=== PATIENT | male | born 1930 | race Caucasian/White ===

== ENCOUNTER 2017-03-18 13:38 | Inpatient (IN) | payer MEDICARE ==
[~2017-03-18] VITALS: Ht 182.9 cm; Wt 77.0 kg
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
[2017-03-18 14:31] VITALS: BP 108/66; BMI 22.5
[2017-03-18 16:35] LABS: BASOPHILS 0.5 % (0-2); HEMATOCRIT 41.3 % (42.0-54.0); HEMOGLOBIN 13.4 g/dL (13.5-17.5); IMMATURE GRANULOCYTES 0.3 % (0-5); LYMPHOCYTES 32.6 % (15-50); MCH 30.8 pg (26.0-34.0); MCHC 32.4 g/dL (31.0-37.0); MCV 94.9 fL (80.0-100.0); MEAN PLATELET VOLUME 9.5 fL (7.4-10.4); MONOCYTES 10.3 % (2-11); NEUTROPHILS 45.3 % (40-80); PLATELET COUNT 211 10x3/uL (130-400); RBC 4.35 10x6/uL (4.20-6.10); RDW 14.2 % (11.5-14.5); WBC 12.7 10x3/uL (4.8-10.8)
[2017-03-18] MEDS ORDERED: CIPRO500 MG PO (16:42)
[2017-03-18] MEDS ORDERED: BAYER CHEWABLE81 MG PO (16:44)
[2017-03-18] MEDS ORDERED: CELEXA20 MG PO (16:45)
[2017-03-18] MEDS ORDERED: FOLIC ACID1 MG PO (16:45)
[2017-03-18] MEDS ORDERED: CIMETIDINE200 MG PO (16:46)
[2017-03-18] MEDS ORDERED: SYNTHROID25 MCG PO (16:47)
[2017-03-18] MEDS ORDERED: COLACE100 MG PO (16:48)
[2017-03-18] MEDS ORDERED: BETAPACE 80 MG80 MG PO (16:48)
[2017-03-18] MEDS ORDERED: DEPAKOTE125 MG PO (16:49)
[2017-03-18 16:51] LABS: HEMOGLOBIN A1C 5.6 % (4.8-6.0)
[2017-03-18] MEDS ORDERED: ZOCOR20 MG PO (16:51)
[2017-03-18] MEDS ORDERED: REMERON15 MG PO (16:51)
[2017-03-18] MEDS ORDERED: ZYRTEC10 MG PO (16:52)
[2017-03-18 17:03] LABS: ALBUMIN 3.1 g/dL (3.4-5.0); ANION GAP 9.9 mmol/L (8-16); BILIRUBIN - TOTAL 0.27 mg/dL (0.2-1.3); CALCIUM 8.9 mg/dL (8.5-10.1); CARBON DIOXIDE 29.8 mmol/L (21.0-32.0); CHOL - HDL RATIO 3.9 ratio (2.3-4.9); CREATININE - SERUM 1.5 mg/dL (0.6-1.3); POTASSIUM - SERUM 4.7 mmol/L (3.5-5.1); PROTEIN - SERUM 8.3 g/dL (6.4-8.2); THYROID STIMULATING HORMONE 3.53 uIU/mL (0.36-3.74)
[2017-03-18 19:55] VITALS: BP 103/62; BP 105/44
[2017-03-18 19:58] VITALS: BP 109/62
--- NOTE | 2017-03-19 04:18 | NUR ---
B) Patient is alert and oriented to self, calm and watching TV, no behaviors noted this shift, I) Administered scheduled medications, monitored for safety and falls, redirected as needed. R) Medication compliant, resting now quietly in bed. P) Continue plan of care.
[2017-03-19 06:13] LABS: RAPID PLASMA REAGIN Non Reactive (Non Reactive)
[2017-03-19 07:23] LABS: FOLATE (FOLIC ACID) - SERUM >20.0 ng/mL (>3.0)
[2017-03-19 09:50] VITALS: BP 120/71
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
--- NOTE | 2017-03-19 12:41 | NUR ---
PATIENT IS IN DINING ROOM AND HE HAS MADE A LEWD REMARK, BUT NO FEMALE IS AROUND HIM, HE SAID HE WANTED TO "F" SOMEONE. WILL MONITOR.
[2017-03-19 13:21] VITALS: BMI 22.3
[2017-03-19 20:37] VITALS: BP 121/69
[2017-03-19 20:55] VITALS: BP 121/69
--- NOTE | 2017-03-20 04:07 | NUR ---
B) Patient is alert and oriented to self, complains of back pain and moans loadly at times, no sexual remarks noted this shift, needy and attention seeking, I) Administered scheduled medications, monitored for safety and falls, assisted with transfers. R) Medication compliant, when in bed patient was able to lift legs and raise his bottom off the bed. P) Continue plan of care.
[2017-03-20 07:00] VITALS: BP 125/57
--- NOTE | 2017-03-20 12:58 | NUR ---
ORIENTED TO SELF ,TOWN, AND HOSPITAL ONLY.NO SEXUAL ADVANCES TOWARD STAFF OBSERVED OR REPORTED TODAY.IS COMPLIANT WITH STAFF AND MEDS.WILL CONTINUE WITH PLAN OF CARE,MONITOR FOR CHANGES AND SAFETY.
[2017-03-20 20:07] LABS: VITAMIN D 25 HYDROXY 22.5 ng/mL (30.0-100.0)
[2017-03-20 20:50] VITALS: BP 144/79
--- NOTE | 2017-03-20 20:54 | NUR ---
RECEIVED IN HALLWAY OUTSIDE OF NURSES STATION. RESTING EYES CLOSED IN RECLINING CHAIR. CALM AND COOPERATIVE WITH CARE AND ASSESSMENTS. NO SEXUALLY INAPPROPRIATE BEHAVIORS. RESTING EYES CLOSED IN BED AT THIS TIME. CONTINUE PLAN OF CARE
[2017-03-21 07:00] VITALS: BP 137/68
--- NOTE | 2017-03-21 13:00 | NUR ---
ASSESSMENT COMPLETED PER FLOW SHEET. COMPLIANT WITH PO MEDS. CONTINUE PLAN OF CARE.
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
[2017-03-21 19:31] VITALS: BP 97/63
--- NOTE | 2017-03-21 23:04 | NUR ---
RECEIVED IN BATHROOM. HAVING DIFFICULTY PASSING BM.SOME BLEENING NOTED FROM RECTUM. CALM AND COOPERATIVE WITH CARE AND ASSESSMENT. NO SIGNS OF INAPPROPRIATE SEXUAL BEHAVIOR. ENCOURAGED TO EXPRESS NEEDS. RESTING IN BED WITH EYES CLOSED AT THIS TIME. CONTINUE PLAN OF CARE.
[2017-03-22 09:21] VITALS: BP 98/67
--- NOTE | 2017-03-22 14:00 | NUR ---
B) ALERT AND ORIENTED TO SELF ONLY. SELF-PROPELS IN W/C, VERY CONFUSED AND UNAWARE OF SURROUNDINGS. SOCIALIZES WITH PEERS AND STAFF. I) ADMINISTERED PRESCRIBED MEDICATIONS, NEEDS FREQUENT REDIRECTING. R) MEDICATION COMPLIANT. REDIRECTS EASILY, WITH SHORT MEMORY RECALL. P) CONTINUE PLAN OF CARE. MONITOR FOR CHANGES AND SAFETY.
--- NOTE | 2017-03-22 14:04 | PN ---
PATIENT:ZHANNA SÁNCHEZ MEDICAL RECORD: [id number] LOCATION:[facility]112 ADMISSION DATE: 03/18/17 PROGRESS NOTE DATE OF SERVICE: 03/21/2017 SUBJECTIVE: The patient's case was discussed with staff. He has no new complaint. OBJECTIVE: The patient is disorganized, but in good behavioral control. He is severely impaired cognitively and has not been sexually inappropriate. ASSESSMENT: No change in diagnoses. PLAN: Supportive and educational interventions were made. CURRENT MEDICATIONS: Reviewed. His long-term prognosis is guarded. TRANSINT:[id number] Voice Confirmation ID: [id number] DOCUMENT ID: [id number] ANABELLE RILEY MD at 1404 CC: [id number] DICTATION DATE: 03/21/17 1353 MEDICAL RECORDS CLERK: 03/21/17 1423 ADM IN [place] [id number] [place] [address]
--- NOTE | 2017-03-22 20:22 | NUR ---
RECEIVED IN DAYROOM. MOVING ABOUT IN WHEELCHAIR. SOCIALIZING WITH PEERS. CALM AND COOPERATIVE WITH CARE AND ASSESSMENTS. NOT BEING SEXUALLY INAPPROPRIATE AT THIS TIME. ENCOURAGE TO EXPRESS NEEDS. SITTING QUIETLY IN HALLWAY AT THIS TIME. CONTINUE PLAN OF CARE
[2017-03-23 09:23] VITALS: BP 133/70
[2017-03-23 09:55] VITALS: BP 111/71
--- NOTE | 2017-03-23 12:22 | NUR ---
B) PATIENT HAS SHOWN FLIRTATIOUS BEHAVIOR TODAY, ASKED ONE OF THE MHT'S TO HIM AND ASKED ACTIVITY THERAPIST TO HIM. HE HAS CALLED ONE OF THE FEMALE PATIENT'S BABY. PATIENT IS CONFUSED, HAS POOR SHORT TERM MEMORY RECALL. HE WANTS TO ALWAYS GO TO BED AND HE DID STAND AND WALK WITH A WALKER WITH STAFF ASSISTANCE. I) PROVIDE PRESCRIBED MEDS. R) PATIENT IS COMPLIANT WITH MEDS. P) CONTINUE POC.
[2017-03-23 20:00] VITALS: BP 100/52
--- NOTE | 2017-03-24 02:17 | NUR ---
b) Patient is alert and oriented , patient dug in hs brief and remove feces and place them in the floor and covered them with magazines, I) Administered scheduled medications, redirected as needed, monitored for safety. R) Medication compliant, resting in bed now, P) Continue plan of care.
[2017-03-24 10:41] VITALS: BP 133/67
--- NOTE | 2017-03-24 11:56 | NUR ---
B) PATIENT DOES SAY INAPPROPRIATE THINGS, HE SAYS SOME OF THE STAFF ARE PRETTY THINGS AND THEN HE MENTIONS "ERICKA" HE SAYS SHE WAS FRIENDS WITH EVERYONE. PATIENT IS CONFUSED HAS POOR SHORT TERM MEMORY RECALL. PATIENT CAN STAND WITH ASSIST SELF PROPELS IN A W/C. I) PROVIDE PRESCRIBED MEDS. R) PATIENT IS COMPLIANT WITH MEDS. P) CONTINUE POC.
[2017-03-24 12:47] VITALS: BMI 22.3
[2017-03-24 20:02] VITALS: BP 98/52
--- NOTE | 2017-03-25 03:14 | NUR ---
B) Patient is alert and oriented to self, withdran and keeping to himself, xavier and cooperative. I) Administered scheduled medications, monitored for safety and falls, redirected as needed. R) medication compliant, resting quietly in bed now, P) Continue plan of care.
[2017-03-25 08:31] VITALS: BP 104/59
--- NOTE | 2017-03-25 10:19 | NUR ---
B) PATIENT KEEPS SAYING "I WANT TO GO TO BED", HE HAS BEEN SAYING THAT SINCE HE WOKE UP. HE IS ORIENTED TO SELF ONLY, BUT HE DOES NOT KNOW PLACE, TIME OR SITUATION. PATIENT SELF PROPELS IN A W/C, HE CAN USE A WALKER WITH STAFF ASSIST. I) PROVIDE PRESCRIBED MEDS. R) PATIENT IS COMPLIANT WITH MEDS. NO INAPPROPRIATE BEHAVIOR, BUT HE IS IN THE DAY ROOM WITH STAFF WITH HIM ALL DAY. P) CONTINUE POC.
[2017-03-25 19:30] VITALS: BP 120/50
--- NOTE | 2017-03-26 03:32 | NUR ---
B) Patient alert and oriented to self, restless at times, watching TV, cooperative with care I) Administered scheduled medications, monitored for safety and falls, redirected as needed. R) Medications compliant, resting now in bed P) Continue plan of care.
--- NOTE | 2017-03-26 07:50 | NUR ---
B) PATIENT IS AWAKE AND ALERT, HE IS ORIENTED TO SELF, HE DOES NOT KNOW WHERE IS LOCATED. HE MOANS AND GROANS AND SOUNDS LIKE HE IS IN PAIN, WHEN YOU ASK HIM IF HE IS OK HE WILL SAY, "I AM OK FOR NOW" BUT HE ALSO SAYS SOON HE GETS OUT OF BED "I'M READY TO GO TO BED" PATIENT IS TALKING TO OTHER PATIENTS AND HE DOES ANSWER IF OTHER PEOPLE ARE TALKING AND THEY ARE NOT TALKING TO HIM. PATIENT CAN WALK, BUT HE WILL TELL STAFF HE CAN NOT. I) PROVIDE PRESCRIBED MEDS AND REDIRECT NEEDED TO APPROPRIATE BEHAVIOR. R) THIS AM HE HAS NOT SHOWN ANY SEXUALLY INAPPROPRIATE BEHVIOR. P) CONT. POC.
[2017-03-26 08:00] VITALS: BP 107/61
[2017-03-26 19:30] VITALS: BP 97/53
--- NOTE | 2017-03-27 02:05 | NUR ---
B) Patient is alert and oriented to self, patient will have a bowel movement, reach into his breif remove it and throw it in the floor, I) Administered scheduled medications, monitored for falls, redirected for behaviors, R) Medication compliant, P) Continue plan of care.
[2017-03-27 07:47] VITALS: BP 140/77
[2017-03-27 11:43] VITALS: Ht 182.9 cm; Wt 77.0 kg
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
[2017-03-27 19:30] VITALS: BP 89/47
--- NOTE | 2017-03-27 20:29 | NUR ---
RECEIVED IN DAYROOM. MOVING ABOUT IN WHEELCHAIR. CALM AND COOPERATIVE WITH CARE AND ASSESSMENTS. NO SIGNS OF SEXUALLY INAPPROPRIATE BEHAVIOR. REDIRECT AND REORIENT NEEDED. CONTINUES TO MOVE ABOUT IN WHEELCHAIR. CONTINUE PLAN OF CARE
[2017-03-28 08:39] VITALS: BP 127/64
[2017-03-28] MEDS ORDERED: MEGACE40 MG PO (12:32)
[2017-03-28] MEDS ORDERED: EFFEXOR37.5 MG PO (12:33)
[2017-03-28] MEDS ORDERED: NAMENDA5 MG PO (12:33)
--- NOTE | 2017-03-28 12:50 | NUR ---
Alert and oriented to self only, self propels in W/C, Cooperative with care. Re orient and redirect as need. Administer medications and monitor compliance. No evidence of reorientation to time, place or situation. No sexually inappropriate behavior assessed. Safety maintained, Continue with plan of care.
[2017-03-28 19:53] VITALS: BP 109/51
--- NOTE | 2017-03-28 20:07 | NUR ---
Received in dayroom. Moving about in wheelchair. Calm and cooperative with care and assessments. No signs of sexually inappropriae behavior. Redirect and reorient as needed. Continues to move about in wheelchair. Continue plan of care
[2017-03-29 07:00] VITALS: BP 90/52
--- NOTE | 2017-03-29 08:40 | NUR ---
B) PATIENT IS AWAKE AND ALERT, HE IS ALREADY ASKING TO GO TO BED, HE HAS NOT MADE ANY STATEMENTS ABOUT SEXUALLY INAPPROPRIATE BEHAVIORS. HE IS ORIENTED TO SELF ONLY. HE SELF PROPELS IN A W/C. I) PROVIDE PRESCRIBED MEDS. R) PATIENT IS COMPLIANT WITH MEDS AND HE REDIRECTS EASILY. P) CONTINUE POC.
--- NOTE | 2017-03-29 10:38 | NUR ---
CALLED REPORT TO ESSENCE AT THE [facility].
--- NOTE | 2017-03-29 11:30 | NUR ---
THE [employer] DICE MANAGER HERE TO HOME BUILDER PATIENT, ASSISTED PATIENT IN W/C TO THE VAN. ALL HARD COPIES PROVIDED. PATIENT HAS HIS WRIS WATCH ON AND CLOTHES HE CAME IN WITH ON. PATIENT NOW D/C'D FROM S.C.
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
--- NOTE | 2017-03-29 13:38 | PN ---
PATIENT:ZHANNA SÁNCHEZ MEDICAL RECORD: [id number] LOCATION:[facility] ADMISSION DATE: 03/18/17 PROGRESS NOTE DATE OF SERVICE: 03/28/2017 SUBJECTIVE: The patient's case was discussed with staff. He has no new complaint. OBJECTIVE: The patient denies intent to harm himself or others. He is in good behavioral control, but has almost no short term memory. ASSESSMENT: No change in diagnoses. PLAN: The patient will be maintained on current medicines, which have been reviewed. His long-term prognosis is guarded. Brief supportive and educational interventions were made. I anticipate he could be transitioned out of the hospital tomorrow morning. Followup will be with his primary care jail physician. TRANSINT:[id number] Voice Confirmation ID: [id number] DOCUMENT ID: [id number] ANABELLE RILEY MD at 1338 CC: [id number] DICTATION DATE: 03/28/17 1235 CREDIT PROCESSOR: 03/28/17 1304 DIS IN 03/29/17 [facility] [address] [place] [address]
--- NOTE | 2017-03-29 13:38 | PN ---
PATIENT:ZHANNA SÁNCHEZ MEDICAL RECORD: [id number] LOCATION:[facility] ADMISSION DATE: 03/18/17 PROGRESS NOTE DATE OF SERVICE: 03/24/2017 SUBJECTIVE: The patient's case was discussed with staff. He has no new complaint. OBJECTIVE: The patient is in good behavioral control with limited insight about his condition. He generally tolerates his medicines well. Eye contact is fair. Concentration is fair. ASSESSMENT: No change in diagnoses. PLAN: Current medicines and therapies have been reviewed. Brief supportive and educational interventions were made. The patient's long-term prognosis is guarded. TRANSINT:[id number] Voice Confirmation ID: [id number] DOCUMENT ID: [id number] ANABELLE RILEY MD at 1338 CC: [id number] DICTATION DATE: 03/24/17 1249 SPEECH THERAPY TEACHER: 03/24/17 1305 DIS IN 03/29/17 [place] [id number] [place] [address]
--- NOTE | 2017-03-29 13:38 | PN ---
PATIENT:ZHANNA SÁNCHEZ MEDICAL RECORD: [id number] LOCATION:[facility]112 ADMISSION DATE: 03/18/17 PROGRESS NOTE DATE OF SERVICE: 03/25/2017 SUBJECTIVE: The patient's case was discussed with staff. He has no new complaint. OBJECTIVE: The patient is disorganized, but not dangerous in some serious way. He has made a number of comments to the female nursing staff that were inappropriate by any standards, but were not vulgar or threatening or openly abusive, just simply inappropriate. ASSESSMENT: No change in diagnoses. PLAN: The patient will be maintained on current medicines, which I have been reviewed. I would anticipate he could be transitioned out of the hospital soon if this level of improvement is maintained. TRANSINT:[id number] Voice Confirmation ID: [id number] DOCUMENT ID: [id number] ANABELLE RILEY MD at 1338 CC: [id number] DICTATION DATE: 03/25/17 1242 JOB SUPERINTENDENT: 03/25/17 1330 DIS IN 03/29/17 [place] [id number] [place] [address]
--- NOTE | 2017-03-29 13:38 | PN ---
PATIENT:ZHANNA SÁNCHEZ MEDICAL RECORD: [id number] LOCATION:[facility]112 ADMISSION DATE: 03/18/17 PROGRESS NOTE DATE OF SERVICE: 03/22/2017 Psychiatric Progress Note SUBJECTIVE: The patient's case was discussed with staff. He has no new complaint. OBJECTIVE: The patient is quite confused, but has not been sexually inappropriate. He has severe impairment of his cognitive skills. ASSESSMENT: No change in diagnoses. PLAN: Supportive and educational interventions were made. The patient will be treated with current medicines, which I have reviewed. I am going to increase the dose of the Namenda slightly secondary to ongoing problems with cognitive impairment. His long-term prognosis is guarded. TRANSINT:[id number] Voice Confirmation ID: [id number] DOCUMENT ID: [id number] ANABELLE RILEY MD at 1338 CC: [id number] DICTATION DATE: 03/22/17 1415 AUDIOVISUAL LEAD TECHNICIAN: 03/22/17 1751 DIS IN 03/29/17 [facility] [address] [place] [address]
--- NOTE | 2017-03-30 16:14 | PN ---
PATIENT:ZHANNA SÁNCHEZ MEDICAL RECORD: [id number] LOCATION:[facility]112 ADMISSION DATE: 03/18/17 PROGRESS NOTE DATE OF SERVICE: 03/29/2017 SUBJECTIVE: The patient's case was discussed with staff. He has no new complaint. OBJECTIVE: The patient is in good behavioral control with limited insight about his condition. He has severe impairment of his cognitive functions. He has no thoughts of harming himself or others. ASSESSMENT: No change in diagnoses. PLAN: Current medicines have been reviewed and will be maintained. Long-term prognosis is guarded. I anticipate the patient can be transitioned out of the hospital today. He is going to go to a [facility]. Followup will be with his primary care [facility] physician. TRANSINT:[id number] Voice Confirmation ID: [id number] DOCUMENT ID: [id number] ANABELLE RILEY MD at 1614 CC: [id number] DICTATION DATE: 03/29/17 1347 LARRIMAN HELPER: 03/29/17 1628 DIS IN 03/29/17 [place] [id number] [place] [address]
== END 2017-03-29 11:40 | DRG 57 ==
LOC: D.PSYCH 13:38
PROVIDERS: ADMIT Psychiatry & Neurology Psychiatry
DX: G30.1 Alzheimer's disease with late onset (principal); F02.81 Dementia in other diseases classified elsewhere, unspecified severity, with behavioral disturbance; N39.0 Urinary tract infection, site not specified; I10 Essential (primary) hypertension; E03.9 Hypothyroidism, unspecified; E78.00 Pure hypercholesterolemia, unspecified; Z86.73 Personal history of transient ischemic attack (TIA), and cerebral infarction without residual deficits; E78.5 Hyperlipidemia, unspecified; I48.91 Unspecified atrial fibrillation; J44.9 Chronic obstructive pulmonary disease, unspecified; J30.9 Allergic rhinitis, unspecified; R26.9 Unspecified abnormalities of gait and mobility; K59.00 Constipation, unspecified; M54.5 Low back pain; G89.29 Other chronic pain

== ENCOUNTER 2017-04-18 16:25 | Inpatient (IN) | payer MEDICARE, MEDICAID ==
[~2017-04-18 16:25] MED LIST: BAYER CHEWABLE81 MG PO; BETAPACE 80 MG80 MG PO; CELEXA20 MG PO; CIMETIDINE200 MG PO; CIPRO500 MG PO; COLACE100 MG PO; DEPAKOTE125 MG PO; EFFEXOR37.5 MG PO; FOLIC ACID1 MG PO; MEGACE40 MG PO; NAMENDA5 MG PO; REMERON15 MG PO; SYNTHROID25 MCG PO; ZOCOR20 MG PO; ZYRTEC10 MG PO
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
[2017-04-18 20:09] VITALS: BP 130/66
[2017-04-18] MEDS ORDERED: CIMETIDINE200 MG PO (21:44)
--- NOTE | 2017-04-18 22:10 | NUR ---
VERBAL CONSENT TO TREAT RECEIVED FROM PATIENTS SON (SUMEET). DISCUSSED PATIENTS CODE STATUS. PATIENTS SON STATED THAT HE WANTED HIS FATHER TO BE A DNR.
--- NOTE | 2017-04-18 23:03 | NUR ---
RECEIVED IN BEDROOM. RESTING IN BED WTIH EYES OPEN. CALM AND COOPERATIVE WITH CARE AND ASSESSMENT. NO SEXUALLY INAPPROPRIATE BEHAVIORS THIS EVENING. ENCOURAGE TO EXPRESS NEEDS. REDIRECT AND REORIENT NEEDED. RESTING IN BED WITH EYES CLOSED AT THIS TIME. CONTINUE PLAN OF CARE.
[2017-04-19 05:38] VITALS: BP 99/53
[2017-04-19 05:41] LABS: BASOPHILS 0.2 % (0-2); HEMATOCRIT 35.6 % (42.0-54.0); HEMOGLOBIN 11.6 g/dL (13.5-17.5); IMMATURE GRANULOCYTES 0.1 % (0-5); LYMPHOCYTES 41.3 % (15-50); MCH 30.3 pg (26.0-34.0); MCHC 32.6 g/dL (31.0-37.0); MEAN PLATELET VOLUME 9.3 fL (7.4-10.4); NEUTROPHILS 42.4 % (40-80); PLATELET COUNT 234 10x3/uL (130-400); RBC 3.83 10x6/uL (4.20-6.10); RDW 14.1 % (11.5-14.5); WBC 9.3 10x3/uL (4.8-10.8)
[2017-04-19 06:03] LABS: HEMOGLOBIN A1C 5.7 % (4.8-6.0)
--- NOTE | 2017-04-19 06:11 | NUR ---
ADMIT ASSESSMENT COMPLETED. PATIENT BECAME VERBALLY ABUSIVE DURING ADMIT HISTORY ASSESSMENT. REFUSING TO ANSWER QUESTIONS. STATING "GET THE FUCK OUT OF HERE!" ATTEMPTED TO REDIRECT. CONTINUED TO BE UNCOOPERATIVE AND VERBALLY ABUSIVE DURING INTAKE HISTORY.
[2017-04-19 06:18] LABS: ALBUMIN 2.8 g/dL (3.4-5.0); ANION GAP 12.3 mmol/L (8-16); BILIRUBIN - TOTAL 0.5 mg/dL (0.2-1.3); CALCIUM 8.6 mg/dL (8.5-10.1); CARBON DIOXIDE 24.8 mmol/L (21.0-32.0); CHOL - HDL RATIO 3.9 ratio (2.3-4.9); CREATININE - SERUM 1.2 mg/dL (0.6-1.3); LDL-HDL RATIO 2.5 ratio (1.5-3.5); POTASSIUM - SERUM 4.1 mmol/L (3.5-5.1); PROTEIN - SERUM 6.9 g/dL (6.4-8.2); THYROID STIMULATING HORMONE 3.7 uIU/mL (0.36-3.74)
[2017-04-19 09:24] VITALS: BP 125/75
[2017-04-19 10:20] VITALS: BMI 23.8
--- NOTE | 2017-04-19 10:35 | NUR ---
ATIVAN 0.5 MG IM IN RIGHT DELTOID PRN FOR VERBALLY ABUSIVE REMARKS AND COMMENTS TO STAFF OF SEXUAL NATURE.
[2017-04-19 12:42] VITALS: BMI 23.8
[2017-04-19 20:52] VITALS: BP 140/76
--- NOTE | 2017-04-19 23:18 | NUR ---
RECIEVED IN ROOM. RESTING IN BED WT EYES CLOSED. RESPONDS TO VOICE. CALM AND COOPERATIVE WTIH ASSESSMENT. BECOMES VERBALLY AGGRESSIVE WTIH CARE. VERBALLY ABUSIVE WITH REDIRECTION. CONTINUING TO REDIRECT AND REORIENT. RESTING IN BED WT EYES CLOSED AT THIS TIME. CONTINUE PLAN OF CARE.
--- NOTE | 2017-04-20 07:55 | NUR ---
PATIENT IS CURSING AND YELLING BECAUSE THE OTHER PATIENT IS YELLING AND ACTING OUT, BUT THIS PATIENT IS EGGING ALL OF THE OTHER PATIENT'S ON, HE IS SAYING "HELP IS ON THE WAY, THE POLICE ARE COMING, SHUT THE F UP, YOU CRAZY FOOL." TRYING TO KEEP THE PATIENT AWAY FROM THE OTHER PATIENT'S BUT HE IS ABLE TO SELF PROPEL TO THE OTHER PATIENTS AND STIR THEM UP BY YELLING AND CURSING. ATIVAN 0.5 MG AND HALDOL 2 MG IM IN RIGHT DELTOID.
--- NOTE | 2017-04-20 08:20 | NUR ---
PATIENT IS CALMER AND NOT YELLING OR IRRITATING OTHER PATIENTS.
[2017-04-20 08:21] LABS: FOLATE (FOLIC ACID) - SERUM >20.0 ng/mL (>3.0); RAPID PLASMA REAGIN Non Reactive (Non Reactive)
[2017-04-20 09:00] VITALS: BP 128/66
--- NOTE | 2017-04-20 10:14 | NUR ---
B) PATIENT IS STARTING TO AWAKEN AND GET IRRITABLE, HE IS MAKING RACIAL STATEMENTS ABOUT BLACK FOLKS AND CALLS THEM "DAMN N'S" PATIENT SELF PROPELS IN THE W/C, HE DOES NOT LISTEN TO REDIRECTION. I) PROVIDE PRESCRIBED MEDS. R) PATIENT IS COMPLIANT WITH MEDS. P) CONTINUE POC.
[2017-04-20 10:20] LABS: VITAMIN D 25 HYDROXY 22.8 ng/mL (30.0-100.0)
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
[2017-04-20 20:22] VITALS: BP 128/66
--- NOTE | 2017-04-21 02:20 | NUR ---
B) Patient is alert and oriented to self, calm this shift, no behaviors noted, I) Administered scheduled medications, monitored for behaviors and for safety, R) Medication compliant, resting quietly in bed now, P) Continue plan of care.
[2017-04-21 08:31] VITALS: BP 155/74
--- NOTE | 2017-04-21 11:20 | NUR ---
B) PATIENT HAS YELLED OUT A COUPLE TIMES, BUT HE HAS BEEN REDIRECTABLE, HE HAS NOT YELLED AT OTHER PATIENTS OR TRIED TO AGGRAVATE THEM THIS AM. HE IS ORIENTED TO SELF ONLY, HE HAS POOR SHORT TERM MEMORY RECALL. I) PROVIDE PRESCRIBED MEDS. R) PATIENT IS COMPLIANT WITH MEDS AND UNIT MILIEU. P) CONTINUE POC.
--- NOTE | 2017-04-21 12:04 | PN ---
PATIENT:ZHANNA SÁNCHEZ MEDICAL RECORD: [id number] LOCATION:[facility] ADMISSION DATE: 04/18/17 PROGRESS NOTE DATE OF SERVICE: 04/20/2017 SUBJECTIVE: The patient's case was discussed with staff. He has no new complaint. OBJECTIVE: The patient continues to be very inappropriate both verbally and sexually. He makes a number of unpleasant racial statements and is also making some vulgar statements towards the staff. When confronted about this, he denies it. His short-term memory is almost nothing, so I suspect he probably is sincerely not remembering these events, but nevertheless his core is exceptionally unpleasant. His will be treated with memory enhancing and mood stabilizing medications. I suspect that he is probably appropriate for a specialized unit, where such behaviors are better monitored, there is fewer opportunity for him to act on them and there is a higher tolerance for inappropriate behavior. I suspect this will be the case, but at this point, I would like to continue to try to improve his underlying condition. TRANSINT:[id number] Voice Confirmation ID: [id number] DOCUMENT ID: [id number] ANABELLE RILEY MD at 1204 CC: [id number] DICTATION DATE: 04/20/17 1229 PARTY DEMONSTRATOR: 04/20/17 1254 ADM IN [facility] [address] [place] [address]
--- NOTE | 2017-04-21 12:24 | NUR ---
NUTRITION F/U CHART REVIEWED. NOTE POOR PO INTAKE. PT HAS BEEN STARTED ON MEGACE. NO BM RECORDED SINCE ADMIT. WILL CONTINUE TO PROVIDE DIET, MONITOR PO INTAKE. RD FOLLOWING
[2017-04-21 22:51] VITALS: BP 123/66
--- NOTE | 2017-04-22 02:17 | NUR ---
RECEIVED IN ROOM. RESTING IN BED WITH EYES CLOSED. RESPONDS TO VOICE. CALM AND COOPERATIVE WITH CARE AND ASSESSMENT. NO SIGNS OF AGGRESSION. NO SEXUALLY INAPPROPRIATE BEHAVIORS. NO RACIAL COMMENTS. ENCOURAGE TO EXPRESS NEEDS. REDIRECT AND REORIENT NEEDED. RESTING IN BED WITH EYES CLOSED AT THIS TIME. CONTINUE PLAN OF CARE.
--- NOTE | 2017-04-22 07:45 | NUR ---
B) PATIENT IS AWAKE AND HE IS SELF PROPELLING IN THE HALLWAY IN HIS W/C. HE IS ORIENTED X1. HE IS NOT YELLING AND STIRRING THE OTHER PATIENTS UP. I) PROVIDE PRESCRIBED MEDS. R) PATIENT IS COMPLIANT WITH MEDS AND UNIT MILIEU. P) CONTINUE POC.
[2017-04-22 10:00] VITALS: BP 100/64
--- NOTE | 2017-04-22 10:00 | PN ---
PATIENT:ZHANNA SÁNCHEZ MEDICAL RECORD: [id number] LOCATION:[facility] ADMISSION DATE: 04/18/17 PROGRESS NOTE DATE OF SERVICE: 04/21/2017 SUBJECTIVE: The patient's case was discussed with staff. He has no new complaint. OBJECTIVE: The patient is in good behavioral control. He is much less agitated. ASSESSMENT: No change in diagnoses. PLAN: The patient has improved. I am going to treat him with a low dose of Risperdal to assist with thought disorganization. I think his long-term prognosis is guarded. TRANSINT:[id number] Voice Confirmation ID: [id number] DOCUMENT ID: [id number] ANABELLE RILEY MD at 1000 CC: [id number] DICTATION DATE: 04/21/17 1226 MINE ENVIRONMENTAL ENGINEER: 04/21/17 1240 ADM IN [place] [address] [place] [address]
--- NOTE | 2017-04-22 16:08 | NUR ---
LATE ENTRY FROM 04/21. ROB MET WITH PT'S SON,SUMEET, TO DISCUSS CARE, MEDICATION MANAGEMENT, DISCHARGE PLANS. SUMEET VERBALIZED UNDERSTANDING OF DISCUSSION.
[2017-04-22 19:30] VITALS: BP 108/50
--- NOTE | 2017-04-23 01:25 | NUR ---
B) Patient is alert and oriented to self, wandering the hallway in wheelchair, restless and wanting to go to bed, I) Administered scheduled medications, monitored for safety R) Medication compliant, resting in bed quietly now, P) Continue plan of care.
[2017-04-23 08:00] VITALS: BP 139/64
--- NOTE | 2017-04-23 11:00 | PN ---
PATIENT:ZHANNA SÁNCHEZ MEDICAL RECORD: [id number] LOCATION:[facility] ADMISSION DATE: 04/18/17 PROGRESS NOTE DATE OF SERVICE: 04/22/2017 SUBJECTIVE: The patient's case was discussed with staff. He has no new complaint. OBJECTIVE: The patient is disorganized and at times very verbally aggressive and sexually inappropriate. He makes vulgar comments toward some of the nurses. ASSESSMENT: No change in diagnoses. PLAN: Supportive and educational interventions were made. Nursing Home prognosis is guarded. I have reviewed his medications and do not think they have had an opportunity to become effective. I will monitor the medicines at this dose for at least another day. TRANSINT:[id number] Voice Confirmation ID: [id number] DOCUMENT ID: [id number] ANABELLE RILEY MD at 1100 CC: [id number] DICTATION DATE: 04/22/17 1249 AGILE JAVA DEVELOPER: 04/22/17 1326 ADM IN [facility] [address] [place] [address]
[2017-04-23 19:30] VITALS: BP 138/86
--- NOTE | 2017-04-23 20:35 | NUR ---
ORIENTED TO SELF ONLY.PROPELLS SELF IN WHEELCHAIR.COMPLIANT WITH MEDS.WILL CONTINUE WITH PLAN OF CARE,MONITOR FOR CHANGES AND SAFETY.
--- NOTE | 2017-04-24 01:34 | NUR ---
RECEIVED IN HALLWAY OUTSIDE OF NURSES STATION. MOVING ABOUT IN WHEELCHAIR. CALM AND COOPERATIVE [facility] CARE AND ASSESSMENT. NO SEXUALLY INAPPROPRIATE BEHAVIORS. ENCOURAGE TO EXPRESS NEEDS. REDIRECT AND REORIENT NEEDED. RESTING IN BED [facility] EYES CLOSED AT THIS TIME. CONTINUE PLAN OF CARE.
[2017-04-24 08:00] VITALS: BP 120/76
--- NOTE | 2017-04-24 08:48 | NUR ---
PATIENT SITTING UP IN CHAIR. EYES ARE CLOSED. PATIENT AWAKENS EASILY TO VERBAL STIMULI. PATIENT IS ALERT AND ORIENTED TO PERSON ONLY. PATIENT IS CALM AND COOPERATIVE. SCHEDULED MORNING MEDICATIONS GIVEN TO PATIENT. PATIENT TOLERATED WELL. WILL MONITOR PATIENT FOR SAFETY AND CONTINUE PLAN OF CARE.
[2017-04-24 19:30] VITALS: BP 120/59
--- NOTE | 2017-04-25 00:07 | NUR ---
RECEIVED IN [place] OUTSIDE OF NURSES STAITON. SITTING IN WHEELCHAIR WITH PEERS AT SIDE. CALM AND COOPERATIVE WITH CARE AND ASSESSMENT. NO SIGNS OF AGGRESSION. NO SEXUALLY INAPPROPRIATE BEHAVIORS. ENCOURAGE TO EXPRESS NEEDS. REDIRECT AND REORIENT NEEDED. RESTING IN BED [facility] EYES CLOSED AT THIS TIME. CONTINUE PLAN OF CARE.
[2017-04-25 08:00] VITALS: BP 117/66
--- NOTE | 2017-04-25 13:37 | PN ---
PATIENT:ZHANNA SÁNCHEZ MEDICAL RECORD: [id number] LOCATION:[facility] ADMISSION DATE: 04/18/17 PROGRESS NOTE DATE OF SERVICE: 04/23/2017 SUBJECTIVE: The patient's case was discussed with staff. He does complain of back pain which is new to me. OBJECTIVE: The patient has been in better behavioral control. He denies that he would seek to harm himself or others. He has not been behaving in the vulgar manner that he had previously behaved. ASSESSMENT: No change in diagnoses. PLAN: Current medicines and therapies have been reviewed and will be maintained. Long-term prognosis is guarded. TRANSINT:[id number] Voice Confirmation ID: [id number] DOCUMENT ID: [id number] ANABELLE RILEY MD at 1337 CC: [id number] DICTATION DATE: 04/23/17 1122 ZINC CHLORIDE OPERATOR: 04/23/17 1216 ADM IN [facility] [address] [place] [address]
[2017-04-25 21:18] VITALS: BP 90/53
--- NOTE | 2017-04-25 23:57 | NUR ---
RECEIVED IN PATIENT ROOM. RESTING IN BED WTIH CLOSED. RESPONDS TO VOICE. CALM AND COOPERATIVE WITH CARE AND ASSESSMENT. NO SEXUALLY INAPPROPRIATE BEHAVIORS. NO SIGNS OF AGGRESSION. ENCOURAGE TO EXPRESS NEEDS. REDIRECT AND REORIENT NEEDED. RESTING IN BED WITH EYES CLOSED AT THIS TIME. CONTINUE PLAN OF CARE.
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
--- NOTE | 2017-04-26 14:24 | NUR ---
Nutrition Follow Up: Pt is eating 51% meal avg on a regular diet. +BM 04/23/17. Meds noted including Megace. Labs reviewed. Rec continue current diet. Rec continue appetite stimulant. RD following.
--- NOTE | 2017-04-26 14:37 | NUR ---
ATIVAN PO GIVEN PER PRN ORDERS FOR ANXIETY.
--- NOTE | 2017-04-26 14:39 | PN ---
PATIENT:ZHANNA SÁNCHEZ MEDICAL RECORD: [id number] LOCATION:[facility] ADMISSION DATE: 04/18/17 PROGRESS NOTE DATE OF SERVICE: 04/25/2017 SUBJECTIVE: The patient's case was discussed with staff. He has no new complaint. OBJECTIVE: The patient denies intent to harm himself or others. He generally tolerates his medicines well. Eye contact is fair. ASSESSMENT: No change in diagnoses. PLAN: Brief supportive and educational interventions were made. I anticipate the patient can be transitioned out of the hospital soon if this level of improvement is maintained. He has not been sexually inappropriate for several days. He continues to make a number of very unpleasant racial slurs. TRANSINT:[id number] Voice Confirmation ID: [id number] DOCUMENT ID: [id number] ANABELLE RILEY MD at 1439 CC: [id number] DICTATION DATE: 04/25/17 1356 PLANT BUYER: 04/25/17 1410 ADM IN [place] [id number] [place] [address]
[2017-04-26] MEDS ORDERED: RISPERDAL0.5 MG PO (14:53)
[2017-04-26] MEDS ORDERED: LIDODERM 5 %1 PATCH TRANSDERM (14:53)
[2017-04-26] MEDS ORDERED: EFFEXOR50 MG PO (14:53)
[2017-04-26] MEDS ORDERED: VITAMIN D5000 UNIT PO (14:53)
[2017-04-26] MEDS ORDERED: VITAMIN B-121000 MCG PO (14:53)
[2017-04-26] MEDS ORDERED: REMOVE PATCH TD (14:54)
[2017-04-26 20:39] VITALS: BP 120/50
--- NOTE | 2017-04-27 02:44 | NUR ---
RECEIVED IN BEDROOM. RESTING IN BED WITH EYES CLOSED. CALM AND COOPERATIVE WITH CARE AND ASSESSMENTS. NO SIGNS OF SEXUALLY INAPPROPRIATE BEHAVIORS. ENCOURAGE TOP EXPRESS NEEDS. RESTING IN BED WITH EYES CLOSED AT THIS TIME. CONTINUE PLAN OF CARE
[2017-04-27 11:03] VITALS: BP 107/62
--- NOTE | 2017-04-27 11:55 | NUR ---
B) PATIENT IS AWAKE AND ALERT, HE IS CONFUSED, HE DOES NOT KNOW WHERE HE IS AND HE IS LOOKING FOR HIS SON SUMEET, HAVE HAD TO REDIRECT HIM. PATIENT SELF PROPELS IN THE W/C. HE HAS NOT SHOWN ANY AGGRESSION OR SEXUALLY INAPPROPRIATE BEHAVIOR. I) PROVIDE PRESCRIBED MEDS, PATIENT IS READY TO DISCHARGE TODAY, FAXED ALL PAPERWORK TO THE RETIREMENT AND HE IS AWARE THAT HE IS D/CING TODAY. R) PATIENT IS COMPLIANT WITH MEDS. P) CONTINUE POC.
--- NOTE | 2017-04-27 12:32 | NUR ---
CALLED REPORT TO CONRAD, EXPLAINED MED CHANGES AND LET HER KNOW I DID FAX MEDS AND D/C ORDER WELL MADE A HARD COPY FOR THE COLLECTION OFFICER TO HAND CARRY.
--- NOTE | 2017-04-27 14:30 | NUR ---
PERSONAL BELONGINGS RETURNED TO PATIENT, PATIENT ALERT, STATED THAT HE WAS READY TO RETURN TO [facility]. PT DENIES PAIN AND NEEDS. PERSONAL W/C RETURNED TO PATIENT. ASSISTED TO EXIT DOORS, ACCOMPANIED BY N/H STAFF AND ASSISTED INTO [facility] VAN FOR TRANSPORT TO LTC FACILITY.
--- NOTE | 2017-04-27 16:41 | PN ---
PATIENT:ZHANNA SÁNCHEZ MEDICAL RECORD: [id number] LOCATION:[facility] ADMISSION DATE: 04/18/17 PROGRESS NOTE DATE OF SERVICE: 04/26/2017 SUBJECTIVE: The patient's case was discussed with staff. He has no new complaint. OBJECTIVE: The patient is an unusually unpleasant fellow who is significantly better today. He actually has been improving through the course of this hospitalization and is certainly not representing a direct or acute risk to himself or others. ASSESSMENT: No change in diagnoses. PLAN: I anticipate the patient can be transitioned out of the hospital tomorrow. That would be assuming the senior care is going to be able to take him back and assuming that his current level of behavior is maintained. I think his long-term prognosis is guarded. Overall, he is significantly better and not a direct danger to anyone. TRANSINT:[id number] Voice Confirmation ID: [id number] DOCUMENT ID: [id number] ANABELLE RILEY MD at 1641 CC: [id number] DICTATION DATE: 04/26/17 1453 UI UX ENGINEER: 04/26/17 1547 ADM IN [facility] [address] [place] [address]
--- NOTE | 2017-05-02 14:04 | PN ---
PATIENT:ZHANNA SÁNCHEZ MEDICAL RECORD: [id number] LOCATION:[facility] ADMISSION DATE: 04/18/17 PROGRESS NOTE DATE OF SERVICE: 04/27/2017 SUBJECTIVE: The patient's case was discussed with staff. He has no new complaint. OBJECTIVE: The patient is in good behavioral control, although he is seriously and significantly impaired cognitively. ASSESSMENT: No change in diagnoses. PLAN: Supportive and educational interventions were made. Long-term prognosis is guarded. The patient will be transitioned out of the hospital today. Follow up will be with his primary care detention physician. He currently does not represent an acute risk to himself or others. TRANSINT:[id number] Voice Confirmation ID: [id number] DOCUMENT ID: [id number] ANABELLE RILEY MD at 1404 CC: [id number] DICTATION DATE: 04/27/17 170 WILLOW ANALYST: 04/27/17 1827 DIS IN 04/27/17 [facility] [address] [place] [address]
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
== END 2017-04-27 14:00 | DRG 57 ==
LOC: D.PSYCH 16:25
PROVIDERS: ADMIT Psychiatry & Neurology Psychiatry
DX: G30.1 Alzheimer's disease with late onset (principal); F02.81 Dementia in other diseases classified elsewhere, unspecified severity, with behavioral disturbance; I42.9 Cardiomyopathy, unspecified; I10 Essential (primary) hypertension; E03.9 Hypothyroidism, unspecified; E78.00 Pure hypercholesterolemia, unspecified; J44.9 Chronic obstructive pulmonary disease, unspecified; Z86.73 Personal history of transient ischemic attack (TIA), and cerebral infarction without residual deficits; I48.0 Paroxysmal atrial fibrillation; G89.4 Chronic pain syndrome; M54.5 Low back pain; K59.00 Constipation, unspecified; D64.9 Anemia, unspecified; E53.8 Deficiency of other specified B group vitamins; E55.9 Vitamin D deficiency, unspecified; Z87.891 Personal history of nicotine dependence